=== PATIENT | male | born 1940 | race Caucasian/White ===

== ENCOUNTER 2016-06-09 13:54 | Inpatient (IN) | payer MEDICARE ==
[2016-06-09] MEDS ORDERED: NS 1,000 ML IV ONE ×2 (13:57)
--- NOTE | 2016-06-09 14:46 | DIRPT ---
CLINICAL DATA: 76-year-old male with acute weakness and fall. EXAM: PORTABLE CHEST 1 VIEW COMPARISON: 07/20/2014 chest radiograph FINDINGS: The patient is rotated. Cardiomegaly, CABG and cardiac valve replacement changes noted. There is no evidence of focal airspace disease, pulmonary edema, suspicious pulmonary nodule/mass, pleural effusion, or pneumothorax. No acute bony abnormalities are identified. IMPRESSION: Cardiomegaly without evidence of acute cardiopulmonary disease. Electronically Signed By: Ghassan Marie M.D. On: 06/09/2016 14:42
[2016-06-09 15:09] LABS: BLOOD UREA NITROGEN 60 MG/DL (9-20); CALC CORRECTED 8.7 MG/DL (8.4-10.2); CALCULATED OSMOLALITY 281 MOs/Kg (270-290); CHLORIDE 101 mEq/L (98-107); GLUCOSE 141 MG/DL (70-99); SODIUM LEVEL 136 mEq/L (137-146); TOTAL PROTEIN 5.6 G/DL (6.3-8.2)
[2016-06-09 15:12] LABS: MPV 8.5 fL (7.4-10.4)
[2016-06-09] MEDS ORDERED: FENTANYL 100 MCG/2 ML VIAL IV ONE ×2 (15:28→16:26)
--- NOTE | 2016-06-09 15:29 | EDPRACDOC ---
- General Information Chief Complaint: Generalized Weakness Stated Complaint: FALL Time Seen by Provider: 06/09/16 13:57 Information Source: Patient, Emergency Man Mode Of Arrival: Ambulance Home Medications: Home Medications Aspirin [Aspirin, Chewable] 81 mg PO DAILY 07/20/14 Atorvastatin Calcium [Lipitor] 10 mg PO HS 07/20/14 Cholecalciferol (Vitamin D3) [Vitamin D3 (cholecalciferol)] 2,000 unit PO DAILY 07/20/14 Furosemide [Lasix] 40 mg PO DAILY 07/20/14 Levothyroxine [Synthroid, Levoxyl] 50 mcg PO DAILY 07/20/14 Losartan Potassium 50 mg PO DAILY 07/20/14 Potassium Chloride 20 meq PO BID 07/20/14 Spironolactone 25 mg PO DAILY 07/20/14 Allopurinol [Zyloprim] 300 mg PO DAILY 06/09/16 Atenolol [Tenormin] 50 mg PO BID 06/09/16 Colchicine 0.6 mg PO BID PRN 06/09/16 Ferrous Sulfate [Feosol] 325 mg PO BID 06/09/16 Folic Acid 1 mg PO DAILY 06/09/16 Multivitamin [Multi-Day Vitamins] 1 each PO DAILY 06/09/16 Warfarin Sodium [Coumadin] 4 mg PO HS 06/09/16 Allergies/Adverse Reactions: Allergies Allergy/AdvReac Type Severity Reaction Status Date / Time No Known Allergies Allergy Verified 06/09/16 14:33 - History of Present Illness Onset: Friday HPI: PT TRIPPED AND FELL ON FRIDAY, LAID ON THE FLOOR FROM FRIDAY 2200 UNTIL TODAY WHEN HE WAS ABLE TO CRAWL TO THE ALARM. 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 FOLLOWED BY COUNSELING CENTER DIRECTOR AT [facility] [place] FOR LOW HB. ON IRON. DENIES CHEST PAIN. C/O LOW BACK PAIN SINCE THE FALL. ED Past Medical History - History Reviewed Yes Nurses notes reviewed and agree except as marked - Patient Medical History Cardiac History: Reports: Atrial Fibrillation (On Coumadin therapy), Hypertension, Congestive Heart Failure, Cardiac Catheterization (R AN L HEART CATH), CABG (2 weeks ago at the [facility] Valvular Heart Disease (MITRAL VALVE - [facility] VALVE PLACEMENT FOR SEVER MR TRICUSPID VALVE - SURGICA). Denies: Pacemaker Respiratory History: Reports: COPD Musculoskeletal History: Reports: Arthritis, Gout Psychological History: Reports: Anxiety. Denies: Depression, Substance Use Disorder Systemic History: Reports: Hypothyroidism Surgical History: Reports: CABG (2 weeks ago at the [facility].), Cardiac Catheterization (R AN L HEART CATH), Tonsillectomy/Adnoidectomy, Other ( Replacement of mitral valve with mechanical/metallic valve.) - Family Medical History Reports: Hypertension (MOM, SISTER, BROTHER), Cancer (DAD - MULT MYELOMA), Stroke (MOM), Cardiac Disorders (MOM). Denies: Diabetes - Social Medical History Smoking Status: Former smoker Social History: Denies: Substance Use Disorder EDM Review of Systems - Review of Systems ROS Negative Except as Marked: Yes All systems reviewed and were negative except as marked Constitutional: Weakness Respiratory: No Symptoms Reported Cardiovascular: No Symptoms Reported Gastrointestinal: No Symptoms Reported Neurological: No Symptoms Reported - Physical Exam Constitutional: No apparent distress, Alert (Awake), Other (CHRONICALLY ILL APPEARING.) Oriented to: Time, Person, Place Last recorded Vital Signs: Last Vital Signs Temp 98.2 F 06/09/16 14:00 Pulse 78 06/09/16 14:33 Resp 18 06/09/16 14:33 BP 85/47 L 06/09/16 14:33 Pulse Ox 92 06/09/16 14:33 Oxygen Pulse Oxygen Saturation 92 O2 Device Room Air Oxygen Flow Rate Fraction of Inspired Oxygen ( FIO2) - HEENT Head: Normal ( normocephalic) Eye Exam: Normal (PERRL, EOMI, Sclera white) Oropharynx: Membranes Dry Nose: No Symptoms Reported (septum midline) Neck: Normal (FROM, trachea at midline) - Respiratory/Cardiovascular Respiratory: Normal - CTA (BBS clear to auscultation without adventitious sounds ) Cardiovascular: Bradycardia - GI Auscultation: Normal (NABS) Palpation: Normal (Soft,No rebound or guarding, non distended) Tenderness: Non tender Houser's Sign: Negative Rectal Exam: Heme negative stool - Musculoskeletal Back: Other (TTP MIDLINE LUMBAR) Extremities: Normal (Normal tone, Pulses 2+ No cyanosis or edema, FROM) - Integumentary Skin: Warm, Dry, Pale, Other (ECCYMOSIS LEFT UPPER BACK, LEFT MEDIAL KNEE, VERY LARGE ECCHYMOSIS RIGHT LOWER FLANK.) Lymphatics: Normal (no adenopathy) - Neurologic Memory Impaired: Normal Motor Function: Normal (Normal tone, Pulses 2+ No cyanosis or edema, FROM) Cranial Nerve: Normal (CN II-X11 intact sensation, strength 5/5) Cerebellar: Normal Mood Description: Normal Perception: Normal - Results 06/09/16 14:45 06/09/16 14:45 Sodium 136 mEq/L (137-146) L 06/09/16 14:45 Potassium 5.2 mEq/L (3.5-5.1) H 06/09/16 14:45 Chloride 101 mEq/L (98-107) 06/09/16 14:45 Carbon Dioxide 23 mMOL/L (22-33) 06/09/16 14:45 Anion Gap 17 mEq/L (8-16) H 06/09/16 14:45 BUN 60 MG/DL (9-20) H 06/09/16 14:45 Creatinine 1.90 MG/DL (0.66-1.25) H 06/09/16 14:45 Estimated GFR (MDRD) 35 mL/min (>=60) L 06/09/16 14:45 Glucose 141 MG/DL (70-99) H 06/09/16 14:45 Calculated Osmolality 281 MOs/Kg (270-290) 06/09/16 14:45 Calcium 8.0 MG/DL (8.4-10.2) L 06/09/16 14:45 Corrected Calcium 8.7 MG/DL (8.4-10.2) 06/09/16 14:45 Magnesium 2.10 MG/DL (1.6-2.3) 06/09/16 14:45 Total Bilirubin 1.1 MG/DL (0.2-1.3) 06/09/16 14:45 AST 62 IU/L (17-59) H 06/09/16 14:45 ALT 45 IU/L (21-72) 06/09/16 14:45 Alkaline Phosphatase 69 IU/L (50-160) 06/09/16 14:45 Troponin I 0.19 ng/mL (<.04) 06/09/16 14:45 Total Protein 5.6 G/DL (6.3-8.2) L 06/09/16 14:45 Albumin 3.3 G/DL (3.5-5.0) L 06/09/16 14:45 Lab Results 06/09/16 14:45 Sodium 136 L Potassium 5.2 H Chloride 101 Carbon Dioxide 23 Anion Gap 17 H BUN 60 H Creatinine 1.90 H Estimated GFR (MDRD) 35 L Glucose 141 H Calculated Osmolality 281 Calcium 8.0 L Corrected Calcium 8.7 Magnesium 2.10 Total Bilirubin 1.1 AST 62 H ALT 45 Alkaline Phosphatase 69 Troponin I 0.19 Total Protein 5.6 L Albumin 3.3 L - EKG EKG #1 EKG Time: 14:26 -: Yes EKG interpreted by me Rate: bpm: 78 Rhythm: Afib ST: Nonsp Comments: ABNORMAL EKG - Additional Information VERY LARGE HEMATOMA RIGHT FLANK, LIKELY THE SOURCE OF BLOOD LOSS. REVIEWED WITH DR RODRÍGUEZ CARDIO [id number], NO CARDIO INTERVENTION AT THIS TIME WITH ELEVATED TROP. EASIER TO REPLACE TRICUSPID MECH VALVE IF THAT NEEDS TO OCCUR. ED Critical Care Note - Critical Care Note Total Time (mins): 30 Comments: Due to the presence of and / or the risk of deterioration, my attendance to this patient required critical care time, including assessment/reassessment, documentation, ordering and interpreting ancillary studies, discussion with ED staff and consultants,patient and family, and excludes time spent on separately billable procedures. - Departure Yes I personally saw and evaluated the patient. Disposition: Admit IP To This Hospital Condition: Critical Final Diagnosis: Acute blood loss anemia, NSTEMI (non-ST elevated myocardial infarction), Supratherapeutic INR, Compression fracture of L2 Right flank hematoma Qualifiers: Encounter type: initial encounter Qualified Code(s): S30.1XXA - Contusion of abdominal wall, initial encounter Acute renal failure Qualifiers: Acute renal failure type: unspecified Qualified Code(s): N17.9 - Acute kidney failure, unspecified Rib fractures Qualifiers: Encounter type: initial encounter Rib fracture type: multiple ribs Fracture type: closed Laterality: right Qualified Code(s): S22.41XA - Multiple fractures of ribs, right side, initial encounter for closed fracture Decision to Admit Time: 16:02 Decision to admit date: 06/09/16 Decision to admit: from ED - Physician Consulted Hospitalist Time Called: 16:02 Provider Called: Adalberto Hennessy Time [employer] Teacher Returned Call: 16:15
[2016-06-09 15:34] LABS: PARTIAL THROMB. TIME 41.3 SEC (22-35); PT-INR 4.8
[2016-06-09 15:53] LABS: SEG NEUTROPHIL 76 % (45-76); TOTAL CELL COUNT 100
[2016-06-09] MEDS ORDERED: ONDANSETRON HCL 4 MG/2 ML VIAL IV PRN (16:34)
[2016-06-09] MEDS ORDERED: DEXTROSE 25 GM/50 ML PFS IV PRN (16:34)
[2016-06-09] MEDS ORDERED: Docusate Sodium 100 MG CAP PO PRN (16:34)
[2016-06-09] MEDS ORDERED: GLUCAGON 1 MG VIAL SQ PRN (16:34)
[2016-06-09] MEDS ORDERED: ACETAMINOPHEN 650 MG SUPP PR PRN (16:34)
[2016-06-09] MEDS ORDERED: ACETAMINOPHEN 325 MG/TAB TABLET PO PRN (16:34)
[2016-06-09] MEDS ORDERED: GLUCOSE (ORAL GEL) 15 GM TUBE PO PRN (16:34)
--- NOTE | 2016-06-09 16:34 | HISTPHYS ---
- Chief Complaint weakness, anemia - History of Present Illness Mr. Streeter is a chronically ill 76-year-old white male with history of coronary artery disease, bypass surgery and tricuspid valve replacement who lives in assisted living facility and ambulates with the assistance of a walker. He apparently fell over his walker around his bath tub and shower 2 days ago eventually landing in the tub. He says the pain from the fall was so severe he was unable to move. Today he was able to reach the emergency response cord and call for help. He was found to have a large ecchymosis on his right flank and was severely tender over his right flank and pelvis. X-rays have shown right- sided rib fractures, sacral fracture and acute hematoma. He is severely anemic with a hemoglobin of 5.1. He takes Coumadin for his artificial valve and his INR is elevated at 4.8. He also appears dehydrated with acute renal failure. In the emergency room he has also been hypotensive and lethargic at times. He will be admitted to the hospital for further evaluation and management of acute blood loss anemia, hypotension, renal failure, and management of his multiple electrolyte abnormalities. - Medical History Cardiac History: Reports: Atrial Fibrillation (On Coumadin therapy), Hypertension, Congestive Heart Failure, Cardiac Catheterization (R AN L HEART CATH), CABG (2 weeks ago at the [facility] Valvular Heart Disease (MITRAL VALVE - [facility] VALVE PLACEMENT FOR SEVER MR TRICUSPID VALVE - SURGICA). Denies: Pacemaker Respiratory History: Reports: COPD GI/ History: Reports: Renal Disease Musculoskeletal History: Reports: Arthritis, Gout Systemic History: Reports: Hypothyroidism Psychological History: Reports: Anxiety. Denies: Depression, Substance Use Disorder - Surgical History Reports: CABG (2 weeks ago at the [facility].), Cardiac Catheterization (R AN L HEART CATH), Tonsillectomy/Adnoidectomy, Other (Replacement of mitral valve with mechanical/metallic valve.) - Medictions/Allergies Allergies No Known Allergies Allergy (Verified 06/09/16 14:33) Current Medication List: Reviewed Home Medications Aspirin [Aspirin, Chewable] 81 mg PO DAILY 07/20/14 Atorvastatin Calcium [Lipitor] 10 mg PO HS 07/20/14 Cholecalciferol (Vitamin D3) [Vitamin D3 (cholecalciferol)] 2,000 unit PO DAILY 07/20/14 Furosemide [Lasix] 40 mg PO DAILY 07/20/14 Levothyroxine [Synthroid, Levoxyl] 50 mcg PO DAILY 07/20/14 Losartan Potassium 50 mg PO DAILY 07/20/14 Potassium Chloride 20 meq PO BID 07/20/14 Spironolactone 25 mg PO DAILY 07/20/14 Allopurinol [Zyloprim] 300 mg PO DAILY 06/09/16 Atenolol [Tenormin] 50 mg PO BID 06/09/16 Colchicine 0.6 mg PO BID PRN 06/09/16 Ferrous Sulfate [Feosol] 325 mg PO BID 06/09/16 Folic Acid 1 mg PO DAILY 06/09/16 Multivitamin [Multi-Day Vitamins] 1 each PO DAILY 06/09/16 Warfarin Sodium [Coumadin] 4 mg PO HS 06/09/16 - Family History Reports: Hypertension (MOM, SISTER, BROTHER), Cancer (DAD - MULT MYELOMA), Stroke (MOM), Cardiac Disorders (MOM). Denies: Diabetes - Social History Travel Outside of [place] in the Last 3 Months?: No Lives: Alone Smoking Status: Former smoker Social History: Denies: Alcohol Use, Substance Use Disorder - Review of Systems Yes All systems reviewed and were negative except as marked Constitutional: Weakness. negative: Chills, Fever, Fatigue - Eyes Vision Loss (left eye). negative: Blurred Vision, Double Vision - Ears No Symptoms Reported. negative: Drainage, Hearing Loss - Nose No Symptoms Reported. negative: Abrasion, Bleeding, Injection - Mouth Mouth: No Symptoms Reported. negative: Pain, Drooling, Denture - Throat/Neck No Symptoms Reported. negative: Pain, Swelling, Hoarseness, Snoring - Respiratory Cough, Shortness of Breath. negative: Wheezing, Sputum - Cardiovascular Chest Pain. negative: Orthopnea, Palpitations - Gastrointestinal Gastrointestinal: Abdominal Pain. negative: Nausea, Vomiting - Genitourinary Genitourinary: negative: Bleeding, Dysuria, Discharge - Neurological Gait Difficulty, Weakness, Other (falls). negative: Seizure - Musculoskeletal Musculoskeletal:: Chronic low back pain, Arthritis, Stiffness, Weakness, Joint Pain, Muscle Pain - Integumentary Bruising (large ecchymosis right flank) - Allergic/Immunologic No Symptoms Reported. negative: Hives, Itching - Hematologic Easy Bruising, Easy Bleeding, Anemia - Endocrine No Symptoms Reported. negative: Weight Gain, Weight Loss - Psychiatric No Symptoms Reported. negative: Anxiety, Hallucinations - Physical Exam Constitutional: Alert (Awake), Cachectic, Distress, Restless, Other ( CHRONICALLY ILL APPEARING.). negative: Well nourished, Well appearing ( severely chronically ill appearing) Oriented to: Time, Person, Place Exam: Last Vital Signs Temp 98.2 F 06/09/16 14:00 Pulse 58 L 06/09/16 15:18 Resp 18 06/09/16 15:48 BP 116/58 L 06/09/16 15:48 Pulse Ox 95 06/09/16 15:48 Intake & Output 06/09/16 06/09/16 06/09/16 07:59 15:59 23:59 Intake Total 0 Balance 0 Patient's weight 77.111 kg - HEENT Head: Normal ( normocephalic) Eye: Normal (PERRL, EOMI, Sclera white), Other (left eye enucleated) Oropharynx: Membranes Dry Nose: No Symptoms Reported (septum midline) - Respiratory/Cardiovascular Respiratory: Rhonchi Cardiovascular: Irregular, Systolic murmur - GI Auscultation: Normal (NABS) Palpation: Normal (Soft,No rebound or guarding, non distended) Tenderness: Non tender Rectal Exam: Heme negative stool - Musculoskeletal Back: Ecchymosis, Laceration, Other (huge ecchymosis right flank and pelvis measuring >30cm, severely tender) Extremities: Femoral Pulse, Pedal Pulse (pelvis and right flank tenderness), Other - Integumentary Skin: Warm, Dry, Pale, Other (ECCYMOSIS LEFT UPPER BACK, LEFT MEDIAL KNEE, VERY LARGE ECCHYMOSIS RIGHT LOWER FLANK.) Lymphatics: Normal (no adenopathy). negative: Adenopathy - Neurologic Memory Impaired: Normal Motor Function: Unable to Test (unable to move due to severe pain, was down for 2 days) Cranial Nerve: Other (left eye deficits) Cerebellar: Normal Mood Description: Normal Thought: Coherent Perception: Normal - Focused CV Perfusion Exam Vital Signs: Last Vital Signs Temp 98.2 F 06/09/16 14:00 Pulse 58 L 06/09/16 15:18 Resp 18 06/09/16 15:48 BP 116/58 L 06/09/16 15:48 Pulse Ox 95 06/09/16 15:48 - Lab Results Laboratory Results - last 24 hr 06/09/16 06/09/16 06/09/16 14:45 14:45 14:45 WBC 15.2 H RBC 1.52 L Hgb 5.1 L* Hct 15.0 L MCV 99 H MCH 33.4 H MCHC 33.8 RDW 15.1 H Plt Count 114 L MPV 8.5 Neut % (Auto) Cancelled Lymph % (Auto) Cancelled [place] % (Auto) Cancelled Eos % (Auto) Cancelled Baso % (Auto) Cancelled Absolute Neuts (auto) Cancelled Absolute Lymphs (auto) Cancelled Seg Neuts % (Manual) 76 Band Neutrophils % 7 H Lymphocytes % (Manual) 15 L Monocytes % (Manual) 1 Metamyelocytes % 1 H Absolute Neutrophils 12.62 H Absolute Lymphocytes 2.28 Vacuolated Neuts 1+ Toxic Granulation Tr Platelet Estimate Occ giant platelet RBC Morphology 1+ macro PT 50.0 H INR 4.8 APTT 41.3 H Sodium 136 L Potassium 5.2 H Chloride 101 Carbon Dioxide 23 Anion Gap 17 H BUN 60 H Creatinine 1.90 H Estimated GFR (MDRD) 35 L Glucose 141 H Calculated Osmolality 281 Calcium 8.0 L Corrected Calcium 8.7 Magnesium 2.10 Total Bilirubin 1.1 AST 62 H ALT 45 Alkaline Phosphatase 69 Troponin I 0.19 Total Protein 5.6 L Albumin 3.3 L Crossmatch 06/09/16 16:05 WBC RBC Hgb Hct MCV MCH MCHC RDW Plt Count MPV Neut % (Auto) Lymph % (Auto) [place] % (Auto) Eos % (Auto) Baso % (Auto) Absolute Neuts (auto) Absolute Lymphs (auto) Seg Neuts % (Manual) Band Neutrophils % Lymphocytes % (Manual) Monocytes % (Manual) Metamyelocytes % Absolute Neutrophils Absolute Lymphocytes Vacuolated Neuts Toxic Granulation Platelet Estimate RBC Morphology PT INR APTT Sodium Potassium Chloride Carbon Dioxide Anion Gap BUN Creatinine Estimated GFR (MDRD) Glucose Calculated Osmolality Calcium Corrected Calcium Magnesium Total Bilirubin AST ALT Alkaline Phosphatase Troponin I Total Protein Albumin Crossmatch See Detail - Assessment (1) Acute blood loss anemia D62 - ACUTE POSTHEMORRHAGIC ANEMIA Acute Present on Admission: Yes Severe at 5.1. This appears to be due to fall, trauma and large right flank hematoma. He appears acutely ill. He is hypotensive. Urgently transfused 3 units of pack red blood cells and monitor for further bleeding. Hold Coumadin for now but hesitate to reverse entirely given artificial heart valve (2) Acute renal failure N17.9 - ACUTE KIDNEY FAILURE, UNSPECIFIED Acute Present on Admission: Yes Qualifiers: Acute renal failure type: unspecified Qualified Code(s): N17.9 - Acute kidney failure, unspecified Likely related to anemia and multiple other issues. Holding Mane receptor reji. Transfusing. Gentle IV hydration and monitor renal function closely. (3) Right flank hematoma S30.1XXA - CONTUSION OF ABDOMINAL WALL, INITIAL ENCOUNTER Acute Present on Admission: Yes Qualifiers: Encounter type: initial encounter Qualified Code(s): S30.1XXA - Contusion of abdominal wall, initial encounter Severe. Massive over entire right side and flank. Very tender. P.r.n. analgesics monitor H&H and transfuse as needed (4) Supratherapeutic INR R79.1 - ABNORMAL COAGULATION PROFILE Acute Present on Admission: Yes On Coumadin for artificial valves. Hold and will out to drift down. Reverse if anemia worsens or does not respond to transfusion (5) CAD (coronary artery disease) I25.10 - ATHSCL HEART DISEASE OF [place] CORONARY ARTERY W/O ANG PCTRS Chronic Present on Admission: Yes Qualifiers: Coronary Disease-Associated Artery/Lesion type: bypass graft [place] vs. transplanted heart: [place] heart Associated angina: without angina Qualified Code(s): I25.810 - Atherosclerosis of coronary artery bypass graft(s) without angina pectoris Denies chest pain at present. Known heart disease and high risk given severe anemia. Serial cardiac enzymes and monitor. Elevated troponin likely due to stress of severe anemia (6) Hypertension I10 - ESSENTIAL (PRIMARY) HYPERTENSION Chronic Present on Admission: Yes Qualifiers: Hypertension type: essential hypertension Qualified Code(s): I10 - Essential (primary) hypertension Currently hypotensive due to anemia. Hold medications and monitor while transfusing (7) Rib fractures S22.39XA - FRACTURE OF ONE RIB, UNSP SIDE, INIT FOR CLOS FX Acute Present on Admission: Yes Qualifiers: Encounter type: initial encounter Rib fracture type: multiple ribs Fracture type: closed Laterality: right Qualified Code(s): S22.41XA - Multiple fractures of ribs, right side, initial encounter for closed fracture Fracture of 11th and 12th ribs. (8) Sacrum and coccyx fracture S32.10XA - UNSP FRACTURE OF SACRUM, INIT ENCNTR FOR CLOSED FRACTURE; S32.2XXA - FRACTURE OF COCCYX, INITIAL ENCOUNTER FOR CLOSED FRACTURE Acute Present on Admission: Yes Qualifiers: Encounter type: initial encounter Fracture type: closed Qualified Code(s) : S32.10XA - Unspecified fracture of sacrum, initial encounter for closed fracture; S32.2XXA - Fracture of coccyx, initial encounter for closed fracture Left sacral fracture (9) Tricuspid valve replaced Z95.2 - PRESENCE OF PROSTHETIC HEART VALVE Acute Present on Admission: Yes Holding Coumadin as supratherapeutic but hesitate to reverse just yet. Would consider if bleeding worsens or does not respond to transfusion. Hopefully the hematoma has tamponaded off Case Care Discussed with: Patient, Consultants, Family, Nursing Staff, Resource Management Total Time: 1 hour 30 minutes Critical Care: Yes
--- NOTE | 2016-06-09 17:11 | DIRPT ---
CLINICAL DATA: Patient status post fall. Low back pain. Initial encounter. EXAM: LUMBAR SPINE - COMPLETE 4+ VIEW COMPARISON: None. FINDINGS: Normal anatomic alignment. Extensive multilevel degenerative disc and facet disease throughout the lower thoracic and lumbar spine. Aortic vascular calcifications. Mild anterior height loss of the L2 vertebral body, age indeterminate. Acute fractures of the posterior right eleventh and twelfth ribs are demonstrated. IMPRESSION: Acute mildly displaced fractures of the posterior right eleventh and twelfth ribs are demonstrated. Age-indeterminate anterior height loss of the L2 vertebral body, recommend correlation with point tenderness. Marked multilevel degenerative disc and facet disease. Electronically Signed By: Kedar Jean-Baptiste M.D. On: 06/09/2016 17:08
--- NOTE | 2016-06-09 17:18 | DIRPT ---
CLINICAL DATA: Severe hip pain after a fall two days ago. EXAM: BILATERAL HIP (WITH PELVIS) 3-4 VIEWS COMPARISON: None. FINDINGS: There is no hip fracture or dislocation. There is suggestion of a vertical fracture through the left side of the sacrum but this is not definitive. No appreciable pubic ramus fractures. IMPRESSION: The hips appear normal. Possible left-sided sacral fracture. Electronically Signed By: Jeff Santiago M.D. On: 06/09/2016 17:15
[2016-06-09 17:28] LABS: LEUKOCYTES/URINE NEG (NEGATIVE); NITRITE/URINE NEG (NEGATIVE); RBC/URINE 0-2 (0-2); URINE OCCULT BLOOD 1+ (NEG/TRACE)
[2016-06-09] MEDS: REGULAR INSULIN 100 UNITS/ML - 3 ML VIAL SQ SCH ×2 (18:41→21:19)
--- NOTE | 2016-06-09 18:42 | DIRPT ---
CLINICAL DATA: Fall 3 days ago in bathroom. Rib fractures and L2 fracture. Anemia. Abdominal and back pain with flank ecchymosis. Leukocytosis. EXAM: CT ABDOMEN AND PELVIS WITHOUT CONTRAST TECHNIQUE: Multidetector CT imaging of the abdomen and pelvis was performed following the standard protocol without IV contrast. COMPARISON: 06/09/2016 FINDINGS: Lower chest: Prior CABG. Mitral valve prosthesis. Moderate cardiomegaly. Bilateral gynecomastia. Small right pleural effusion. Imaging through the lung bases reveals fractures of the right tenth, eleventh, and twelfth fried ribs with the eleventh and twelfth rib fractures being displaced. Hepatobiliary: No obvious liver laceration although sensitivity is adversely affected by the lack of IV contrast. There is a small amount of fluid just below the inferior margin of the right hepatic lobe which could be an indirect sign of liver injury but may also be due to the generalized flank injury in this vicinity. Pancreas: Unremarkable Spleen: Unremarkable Adrenals/Urinary Tract: The adrenal glands, kidneys, ureters, and bladder appear normal. However, posterior to the right kidney lower pole there is a 2.6 by 3.7 by 2.2 cm hematoma with a hematocrit level and surrounding stranding. There is also abnormal stranding and probable hematoma tracking along the perirenal fascia and to a lesser degree in the right paracolic gutter. Stomach/Bowel: Small gastric diverticulum posteriorly. Scattered colonic diverticula. Normal appendix. Transverse duodenum unremarkable. Prominence of stool in the rectal vault. Vascular/Lymphatic: Aortoiliac atherosclerotic vascular disease. Reproductive: Central zone prostate gland calcifications. Other: In addition to the small abnormal perirenal space hematoma and abnormal stranding along the right perirenal fascia, there is edema tracking in the right retroperitoneum down into the pelvic sidewall and right inguinal region. No overt iloipsoas or gluteus hematoma. There is abnormal thickening of the right latissimus dorsi and the right lateral abdominal wall musculature with hematoma tracking within along the musculature but especially in the overlying subcutaneous tissues of the right flank. This is primarily infiltrative along the right flank but there is also a 17.3 by 2.9 by 10.4 cm confluent subcutaneous hematoma along the right posterior lower ribs posteriorly, and tracking just across midline on image 35 series 2. Musculoskeletal: In addition to the above-described right rib fractures, there are acute fractures of the right second, third, and fourth lumbar transverse processes as well as an oblique fracture of the anterior superior endplate of L1 extending to the upper vertebral body margin but without definite involvement of the posterior elements. Thoracic and lumbar spondylosis is present. There is bridging spurring of both sacroiliac joints. I do not see that the right lateral abdominal wall musculature is torn away from the iliac crest. No well-defined pelvic fractures; the irregularity along the left lateral arcuate line shown on radiography is thought to be due to a combination of the adjacent spurring and vascular calcifications. IMPRESSION: 1. Right flank hematoma with some expansion of the right latissimus dorsi and right lateral abdominal wall musculature indicating muscular hematoma. There is asymmetric infiltrative edema or hematoma in the right flank overlying the latissimus dorsi and lateral abdominal wall musculature, and also a more confluent 17.3 by 2.9 by 10.4 cm subcutaneous hematoma along the right posterior back overlying the thoracoabdominal junction and slightly crossing midline. 2. Acute fractures include the right tenth, eleventh, and twelfth ribs; the right L 2, L 3, and L4 transverse processes; and an oblique fracture of the anterior superior endplate of L1 extending to the upper vertebral margin but not shown to involve the posterior elements. 3. There is a small perirenal hematoma on the right. This is in the perirenal space but does not definitively connect to the kidney. There is also hematoma/edema tracking along the perirenal fascia margins on the right, along the right retroperitoneum, and towards the right inguinal canal. However, the sum total of the retroperitoneal hematoma is much smaller than the flank hematoma. 4. Small right pleural effusion. Hemothorax not excluded. 5. Other imaging findings of potential clinical significance: Moderate cardiomegaly. Prior CABG and mitral valve prosthesis. Bilateral gynecomastia. Gastric diverticulum. Prominence of stool in the rectal vault. Thoracic and lumbar bridging spurring and bridging spurring of the sacroiliac joints. No discrete pelvic fracture. 6. Please note that the lack of IV contrast reduces sensitivity for solid organ laceration. Moreover, I do not demonstrate discrete evidence for bowel injury, but bowel injury can be occult on initial trauma scan. Electronically Signed By: Santo Bates M.D. On: 06/09/2016 18:39
[2016-06-09] MEDS ORDERED: Vaccine Screening Complete SCH (20:00)
[2016-06-09] MEDS: ATORVASTATIN 10 MG TAB PO SCH (21:58)
[2016-06-09] MEDS: MORPHINE 2 MG/ML INJECTION IV PRN (23:12)
[2016-06-10] MEDS ORDERED: LEVOTHYROXINE 50 MCG (0.05 MG) TAB PO SCH (06:00)
[2016-06-10] MEDS ORDERED: LEVOTHYROXINE 25 MCG (0.025 MG) TAB PO SCH (06:00)
[2016-06-10] MEDS: REGULAR INSULIN 100 UNITS/ML - 3 ML VIAL SQ SCH ×4 (06:21→21:31)
[2016-06-10 07:42] LABS: MPV 7.7 fL (7.4-10.4)
[2016-06-10 08:02] LABS: BLOOD UREA NITROGEN 57 MG/DL (9-20); CALCIUM 7.4 MG/DL (8.4-10.2); CALCULATED OSMOLALITY 274 MOs/Kg (270-290); CHLORIDE 101 mEq/L (98-107); GLUCOSE 103 MG/DL (70-99); SODIUM LEVEL 134 mEq/L (137-146)
[2016-06-10] MEDS: MORPHINE 2 MG/ML INJECTION IV PRN ×4 (08:28→21:11)
[2016-06-10] MEDS: FUROSEMIDE 40 MG TAB PO SCH (08:30)
[2016-06-10] MEDS: ALLOPURINOL 300 MG TAB PO SCH (08:30)
[2016-06-10] MEDS ORDERED: ALLOPURINOL 300 MG TAB PO SCH (09:00)
[2016-06-10] MEDS: MAGNESIUM HYDROXIDE 30 ML BOTTLE PO PRN ×2 (15:00→21:11)
--- NOTE | 2016-06-10 16:03 | GENMEDPROG ---
Chief Complaint: Hemoglobin improved some but not as much as expected. Still significantly anemic at 6.9. Still with moderate pain though he does feel some better. Notes Reviewed: Yes Events from last night noted and discussed with Clinical Staff Current Medication List: Reviewed Currently: Denies: Cough, Wheezing, MAXWELL, SOB, Nausea and Vomiting, Abdominal Pain - Physical Examination Vital Signs and I&O: Last Vital Signs Temp 98.3 F 06/10/16 11:58 Pulse 75 06/10/16 14:00 Resp 18 06/10/16 11:58 BP 112/53 L 06/10/16 11:58 Pulse Ox 97 06/10/16 11:58 Oxygen Pulse Oxygen Saturation 97 O2 Device Room Air Oxygen Flow Rate Fraction of Inspired Oxygen ( FIO2) Intake & Output 06/07/16 06/08/16 06/09/16 06/10/16 23:59 23:59 23:59 23:59 Intake Total 2049 2326 Output Total 1850 Balance 2049 476 Patient's weight 82.157 kg 82.724 kg General: Alert, Oriented x3, Cooperative, Mild distress. negative: Well appearing (Acutely and chronically ill-appearing) HEENT: Normal, PERRLA Neck: Non-tender, Full range of motion, Normal Trachea alignment. negative: JVD Lymphatics: Normal (no adenopathy) Respiratory: Normal - CTA (BBS clear to auscultation without adventitious sounds ) Cardiovascular: Regular rate and rhythm, No Gallops,Rubs/Murmurs GI: Normal bowel sounds, Soft, Non tender, No hepatospenomegaly Extremities/Musculoskeletal: Tenderness (Right flank) Skin: Other (Large ecchymoses right flank. Very tender to palpation) Neurological: Normal speech, Cranial nerves 3-12 NL, Reflexes 2+ Psych/Mental Status: Appropriate, Normal Affect, Cooperative Lab/DI/Studies Reviewed: Laboratory Results - last 24 hr 06/09/16 06/09/16 06/09/16 14:45 16:05 17:02 WBC RBC Hgb Hct MCV MCH MCHC RDW Plt Count MPV Sodium Potassium Chloride Carbon Dioxide Anion Gap BUN Creatinine Estimated GFR (MDRD) Glucose POC Capillary Glucose Calculated Osmolality Calcium Total Creatine Kinase 1338 H Myoglobin 1994.0 H Troponin I Urine Color Yellow Urine Clarity Clear Urine pH 5.0 Ur Specific [place] 1.015 Urine Protein Neg Urine Glucose (UA) Neg Urine Ketones Neg Urine Occult Blood 1+ H Urine Nitrite Neg Urine Bilirubin Neg Urine Urobilinogen <2.0 Ur Leukocyte Esterase Neg Urine RBC 0-2 Urine WBC 2-5 H Hyaline Casts 10-20 H Urine Mucus Occ Blood Type O POSITIVE Antibody Screen Negative Crossmatch See Detail 06/09/16 06/09/16 06/10/16 19:20 22:10 05:26 WBC RBC Hgb Hct MCV MCH MCHC RDW Plt Count MPV Sodium Potassium Chloride Carbon Dioxide Anion Gap BUN Creatinine Estimated GFR (MDRD) Glucose POC Capillary Glucose 122 H Calculated Osmolality Calcium Total Creatine Kinase Myoglobin Troponin I 0.20 0.19 Urine Color Urine Clarity Urine pH Ur Specific [place] Urine Protein Urine Glucose (UA) Urine Ketones Urine Occult Blood Urine Nitrite Urine Bilirubin Urine Urobilinogen Ur Leukocyte Esterase Urine RBC Urine WBC Hyaline Casts Urine Mucus Blood Type Antibody Screen Crossmatch 06/10/16 06/10/16 06/10/16 07:34 07:34 10:49 WBC 12.2 H RBC 2.19 L Hgb 6.9 L* D Hct 20.4 L MCV 93 MCH 31.6 MCHC 34.0 RDW 16.8 H Plt Count 83 L MPV 7.7 Sodium 134 L Potassium 4.4 Chloride 101 Carbon Dioxide 26 Anion Gap 11 BUN 57 H Creatinine 1.70 H Estimated GFR (MDRD) 39 L Glucose 103 H POC Capillary Glucose 145 H Calculated Osmolality 274 Calcium 7.4 L Total Creatine Kinase Myoglobin Troponin I Urine Color Urine Clarity Urine pH Ur Specific [place] Urine Protein Urine Glucose (UA) Urine Ketones Urine Occult Blood Urine Nitrite Urine Bilirubin Urine Urobilinogen Ur Leukocyte Esterase Urine RBC Urine WBC Hyaline Casts Urine Mucus Blood Type Antibody Screen Crossmatch - Assessment (1) Acute blood loss anemia Acute D62 - ACUTE POSTHEMORRHAGIC ANEMIA Comment/Plan: Hemoglobin increased to 6.9 with 3 units. Some improvement but not as much as expected. Has huge right flank hematoma. Will transfuse 2 more units packed red blood cells. Continue to hold Coumadin for now (2) Acute renal failure Acute N17.9 - ACUTE KIDNEY FAILURE, UNSPECIFIED Qualifiers: Acute renal failure type: unspecified Qualified Code(s): N17.9 - Acute kidney failure, unspecified Comment/Plan: Creatinine a little better. Continue to monitor. (3) Right flank hematoma Acute S30.1XXA - CONTUSION OF ABDOMINAL WALL, INITIAL ENCOUNTER Qualifiers: Encounter type: initial encounter Qualified Code(s): S30.1XXA - Contusion of abdominal wall, initial encounter Comment/Plan: Severe. Massive over entire right side and flank. Very tender. P.r.n. analgesics monitor H&H and transfuse as needed (4) Supratherapeutic INR Acute R79.1 - ABNORMAL COAGULATION PROFILE Comment/Plan: On Coumadin for artificial valves. Hold and will out to drift down. Reverse if anemia worsens or does not respond to transfusion (5) CAD (coronary artery disease) Chronic I25.10 - ATHSCL HEART DISEASE OF [place] CORONARY ARTERY W/O ANG PCTRS Qualifiers: Coronary Disease-Associated Artery/Lesion type: bypass graft [place] vs. transplanted heart: [place] heart Associated angina: without angina Qualified Code(s): I25.810 - Atherosclerosis of coronary artery bypass graft(s) without angina pectoris Comment/Plan: Denies chest pain at present. Known heart disease and high risk given severe anemia. Serial cardiac enzymes and monitor. Elevated troponin likely due to stress of severe anemia (6) Hypertension Chronic I10 - ESSENTIAL (PRIMARY) HYPERTENSION Qualifiers: Hypertension type: essential hypertension Qualified Code(s): I10 - Essential (primary) hypertension Comment/Plan: Currently hypotensive due to anemia. Hold medications and monitor while transfusing (7) Rib fractures Acute S22.39XA - FRACTURE OF ONE RIB, UNSP SIDE, INIT FOR CLOS FX Qualifiers: Encounter type: initial encounter Rib fracture type: multiple ribs Fracture type: closed Laterality: right Qualified Code(s): S22.41XA - Multiple fractures of ribs, right side, initial encounter for closed fracture Comment/Plan: Fracture of 11th and 12th ribs. (8) Sacrum and coccyx fracture Acute S32.10XA - UNSP FRACTURE OF SACRUM, INIT ENCNTR FOR CLOSED FRACTURE; S32.2XXA - FRACTURE OF COCCYX, INITIAL ENCOUNTER FOR CLOSED FRACTURE Qualifiers: Encounter type: initial encounter Fracture type: closed Qualified Code(s) : S32.10XA - Unspecified fracture of sacrum, initial encounter for closed fracture; S32.2XXA - Fracture of coccyx, initial encounter for closed fracture Comment/Plan: Left sacral fracture (9) Tricuspid valve replaced Acute Z95.2 - PRESENCE OF PROSTHETIC HEART VALVE Comment/Plan: Holding Coumadin as supratherapeutic but hesitate to reverse just yet. Would consider if bleeding worsens or does not respond to transfusion. Hopefully the hematoma has tamponaded off Case Care Discussed with: Patient, Nursing Staff, Physical Therapy, Resource Management, Respiratory Therapy, Senior Caregiver
[2016-06-10] MEDS ORDERED: SIMETHICONE 80 MG TAB PO SCH (18:00)
[2016-06-10] MEDS: ATORVASTATIN 10 MG TAB PO SCH (21:15)
[2016-06-11] MEDS: MORPHINE 2 MG/ML INJECTION IV PRN ×8 (01:00→23:10)
[2016-06-11] MEDS: SIMETHICONE 80 MG TAB PO PRN ×5 (01:00→23:10)
[2016-06-11 05:27] LABS: AUTOMATED BASOPHIL 0.2 % (0-2); AUTOMATED EOSINOPHIL 0.3 % (0-5); AUTOMATED LYMPH 14.2 % (17-44); AUTOMATED MONOCYTE 9.9 % (3-10); AUTOMATED NEUTROPHIL 75.4 % (45-76); MPV 8.2 fL (7.4-10.4)
[2016-06-11 05:32] LABS: PT-INR 1.8
[2016-06-11 05:40] LABS: BLOOD UREA NITROGEN 47 MG/DL (9-20); CALCIUM 7.7 MG/DL (8.4-10.2); CALCULATED OSMOLALITY 268 MOs/Kg (270-290); CHLORIDE 98 mEq/L (98-107); GLUCOSE 90 MG/DL (70-99); SODIUM LEVEL 133 mEq/L (137-146)
[2016-06-11] MEDS: REGULAR INSULIN 100 UNITS/ML - 3 ML VIAL SQ SCH ×4 (05:47→20:47)
[2016-06-11] MEDS ORDERED: LEVOTHYROXINE 50 MCG (0.05 MG) TAB PO SCH (06:00)
[2016-06-11] MEDS: LEVOTHYROXINE 25 MCG (0.025 MG) TAB PO SCH (06:30)
[2016-06-11] MEDS: ALLOPURINOL 300 MG TAB PO SCH (09:35)
[2016-06-11] MEDS: FUROSEMIDE 40 MG TAB PO SCH (09:35)
--- NOTE | 2016-06-11 10:55 | GENMEDPROG ---
Chief Complaint: Still with moderate to severe pain. Hemoglobin has improved. Blood pressures are stable Notes Reviewed: Yes Events from last night noted and discussed with Clinical Staff Current Medication List: Reviewed Currently: Denies: Cough, Wheezing, MAXWELL, SOB, Nausea and Vomiting, Abdominal Pain - Physical Examination Vital Signs and I&O: Last Vital Signs Temp 98.3 F 06/11/16 07:45 Pulse 88 06/11/16 09:55 Resp 19 06/11/16 07:45 BP 116/59 L 06/11/16 07:45 Pulse Ox 97 06/11/16 07:45 Oxygen Pulse Oxygen Saturation 97 O2 Device Room Air Oxygen Flow Rate Fraction of Inspired Oxygen ( FIO2) Intake & Output 06/08/16 06/09/16 06/10/16 06/11/16 23:59 23:59 23:59 23:59 Intake Total 2049 3696 700 Output Total 1849 1350 Balance 2049 1846 -650 Patient's weight 82.157 kg 82.724 kg 83.28 kg General: Alert, Oriented x3, Cooperative, Mild distress. negative: Well appearing (Acutely and chronically ill-appearing) HEENT: Normal, PERRLA Neck: Non-tender, Full range of motion, Normal Trachea alignment. negative: JVD Lymphatics: Normal (no adenopathy) Respiratory: Normal - CTA (BBS clear to auscultation without adventitious sounds ) Cardiovascular: Regular rate and rhythm, No Gallops,Rubs/Murmurs GI: Normal bowel sounds, Soft, Non tender, No hepatospenomegaly Extremities/Musculoskeletal: Tenderness (Right flank) Skin: Other (Large ecchymoses right flank. Very tender to palpation) Neurological: Normal speech, Cranial nerves 3-12 NL, Reflexes 2+ Psych/Mental Status: Appropriate, Normal Affect, Cooperative Lab/DI/Studies Reviewed: Laboratory Results - last 24 hr 06/09/16 06/10/16 06/10/16 16:05 10:49 16:15 WBC RBC Hgb Hct MCV MCH MCHC RDW Plt Count MPV Neut % (Auto) Lymph % (Auto) [place] % (Auto) Eos % (Auto) Baso % (Auto) Absolute Neuts (auto) Absolute Lymphs (auto) PT INR Sodium Potassium Chloride Carbon Dioxide Anion Gap BUN Creatinine Estimated GFR (MDRD) Glucose POC Capillary Glucose 145 H 126 H Calculated Osmolality Calcium Blood Type O POSITIVE Antibody Screen Negative Crossmatch See Detail 06/10/16 06/11/16 06/11/16 20:46 04:25 04:25 WBC 9.4 RBC 2.70 L Hgb 8.3 L D Hct 24.0 L MCV 89 MCH 30.8 MCHC 34.7 RDW 19.7 H Plt Count 65 L MPV 8.2 Neut % (Auto) 75.4 Lymph % (Auto) 14.2 L [place] % (Auto) 9.9 Eos % (Auto) 0.3 Baso % (Auto) 0.2 Absolute Neuts (auto) 7.05 Absolute Lymphs (auto) 1.32 PT INR Sodium 133 L Potassium 4.4 Chloride 98 Carbon Dioxide 30 Anion Gap 9 BUN 47 H Creatinine 1.30 H Estimated GFR (MDRD) 54 L Glucose 90 POC Capillary Glucose 148 H Calculated Osmolality 268 L Calcium 7.7 L Blood Type Antibody Screen Crossmatch 06/11/16 06/11/16 06/11/16 04:25 05:45 10:47 WBC RBC Hgb Hct MCV MCH MCHC RDW Plt Count MPV Neut % (Auto) Lymph % (Auto) [place] % (Auto) Eos % (Auto) Baso % (Auto) Absolute Neuts (auto) Absolute Lymphs (auto) PT 18.6 H INR 1.8 Sodium Potassium Chloride Carbon Dioxide Anion Gap BUN Creatinine Estimated GFR (MDRD) Glucose POC Capillary Glucose 122 H 116 H Calculated Osmolality Calcium Blood Type Antibody Screen Crossmatch - Assessment (1) Acute blood loss anemia Acute D62 - ACUTE POSTHEMORRHAGIC ANEMIA Comment/Plan: Increased up to 8.3. Anemia due to huge right flank hematoma. Status post 5 units of packed red blood cells. INR now down to 1.8. Can restart Coumadin given artificial valve but will need to monitor closely for bleeding (2) Acute renal failure Acute N17.9 - ACUTE KIDNEY FAILURE, UNSPECIFIED Qualifiers: Acute renal failure type: unspecified Qualified Code(s): N17.9 - Acute kidney failure, unspecified Comment/Plan: Creatinine steadily improving. (3) Right flank hematoma Acute S30.1XXA - CONTUSION OF ABDOMINAL WALL, INITIAL ENCOUNTER Qualifiers: Encounter type: initial encounter Qualified Code(s): S30.1XXA - Contusion of abdominal wall, initial encounter Comment/Plan: Severe. Massive over entire right side and flank. Very tender. P.r.n. analgesics monitor H&H and transfuse as needed (4) Supratherapeutic INR Acute R79.1 - ABNORMAL COAGULATION PROFILE Comment/Plan: On Coumadin for artificial valves. INR 1.8 today so will restart Coumadin (5) CAD (coronary artery disease) Chronic I25.10 - ATHSCL HEART DISEASE OF [place] CORONARY ARTERY W/O ANG PCTRS Qualifiers: Coronary Disease-Associated Artery/Lesion type: bypass graft [place] vs. transplanted heart: [place] heart Associated angina: without angina Qualified Code(s): I25.810 - Atherosclerosis of coronary artery bypass graft(s) without angina pectoris Comment/Plan: Some chest pain but clearly related to rib fractures. Known heart disease and high risk given severe anemia. Cardiac status is stable (6) Hypertension Chronic I10 - ESSENTIAL (PRIMARY) HYPERTENSION Qualifiers: Hypertension type: essential hypertension Qualified Code(s): I10 - Essential (primary) hypertension Comment/Plan: Currently hypotensive due to anemia. Hold medications and monitor while transfusing (7) Rib fractures Acute S22.39XA - FRACTURE OF ONE RIB, UNSP SIDE, INIT FOR CLOS FX Qualifiers: Encounter type: initial encounter Rib fracture type: multiple ribs Fracture type: closed Laterality: right Qualified Code(s): S22.41XA - Multiple fractures of ribs, right side, initial encounter for closed fracture Comment/Plan: Fracture of 11th and 12th ribs. (8) Sacrum and coccyx fracture Acute S32.10XA - UNSP FRACTURE OF SACRUM, INIT ENCNTR FOR CLOSED FRACTURE; S32.2XXA - FRACTURE OF COCCYX, INITIAL ENCOUNTER FOR CLOSED FRACTURE Qualifiers: Encounter type: initial encounter Fracture type: closed Qualified Code(s) : S32.10XA - Unspecified fracture of sacrum, initial encounter for closed fracture; S32.2XXA - Fracture of coccyx, initial encounter for closed fracture Comment/Plan: Left sacral fracture (9) Tricuspid valve replaced Acute Z95.2 - PRESENCE OF PROSTHETIC HEART VALVE Comment/Plan: Restarting Coumadin today due to decreased INR. Case Care Discussed with: Patient, Nursing Staff, Physical Therapy, Resource Management, Respiratory Therapy, Net Sql Developer
[2016-06-11] MEDS ORDERED: WARFARIN EDUCATION DOCUMENTATION ONE (12:00)
[2016-06-11] MEDS: This patient is receiving warfarin therapy SCH (17:13)
[2016-06-11] MEDS ORDERED: WARFARIN 4 MG TAB PO SCH (18:00)
[2016-06-11] MEDS: ATORVASTATIN 10 MG TAB PO SCH (20:49)
[2016-06-12] MEDS: MORPHINE 2 MG/ML INJECTION IV PRN ×4 (02:38→11:24)
[2016-06-12 04:04] VITALS: BMI 29.0
[2016-06-12 05:34] LABS: AUTOMATED BASOPHIL 0.3 % (0-2); AUTOMATED EOSINOPHIL 1.4 % (0-5); AUTOMATED LYMPH 14.4 % (17-44); AUTOMATED MONOCYTE 12.2 % (3-10); AUTOMATED NEUTROPHIL 71.7 % (45-76); MPV 8.2 fL (7.4-10.4)
[2016-06-12 05:41] LABS: PT-INR 1.5
[2016-06-12 05:55] LABS: BLOOD UREA NITROGEN 38 MG/DL (9-20); CALCIUM 7.9 MG/DL (8.4-10.2); CALCULATED OSMOLALITY 263 MOs/Kg (270-290); CHLORIDE 96 mEq/L (98-107); GLUCOSE 88 MG/DL (70-99); SODIUM LEVEL 132 mEq/L (137-146)
[2016-06-12] MEDS: LEVOTHYROXINE 25 MCG (0.025 MG) TAB PO SCH (05:58)
[2016-06-12] MEDS: REGULAR INSULIN 100 UNITS/ML - 3 ML VIAL SQ SCH ×4 (05:58→21:17)
[2016-06-12] MEDS: SIMETHICONE 80 MG TAB PO PRN ×2 (05:59→21:21)
[2016-06-12] MEDS: FUROSEMIDE 40 MG TAB PO SCH (09:21)
[2016-06-12] MEDS: ALLOPURINOL 300 MG TAB PO SCH (09:21)
--- NOTE | 2016-06-12 10:44 | GENMEDPROG ---
Subjective Note: Patient in bed responsive follows command. Still significant amount of pain involving back and right flank. Denies and difficulties breathing lb chest discomfort with coughing and taking deep breaths related to rib fractures. Slow progress with physical therapy. Notes Reviewed: Yes Events from last night noted and discussed with Clinical Staff Current Medication List: Reviewed Currently: Reports: Cough, MAXWELL, Sputum, Tobacco Use/Hx, Reflux Sx. Denies: Wheezing, SOB, Nausea and Vomiting, Abdominal Pain DVT Prophylaxis: Yes - Physical Examination Vital Signs and I&O: Last Vital Signs Temp 98.3 F 06/12/16 07:38 Pulse 68 06/12/16 07:38 Resp 20 06/12/16 07:38 BP 121/58 L 06/12/16 07:38 Pulse Ox 94 06/12/16 07:38 Oxygen Pulse Oxygen Saturation 94 O2 Device Room Air Oxygen Flow Rate Fraction of Inspired Oxygen ( FIO2) Intake & Output 06/09/16 06/10/16 06/11/16 06/12/16 23:59 23:59 23:59 23:59 Intake Total 2049 3696 1540 Output Total 1850 3050 1500 Balance 2049 1846 -1510 -1500 Patient's weight 82.157 kg 82.724 kg 83.28 kg 84.005 kg General: Alert, Oriented x3, Cooperative, No acute distress, Weakness, Fatigue. negative: Well appearing (Acutely and chronically ill-appearing) HEENT: Normal, PERRLA, EOMI, Anicteric Sclera Neck: Non-tender, Full range of motion, Normal Trachea alignment, Limited range of motion. negative: JVD Lymphatics: Normal (no adenopathy) Respiratory: Normal - CTA (BBS clear to auscultation without adventitious sounds ), Diminished, Rhonchi Cardiovascular: Regular rate and rhythm, Normal S1, No Gallops,Rubs/Murmurs, Normal S2, Murmurs GI: Normal bowel sounds, Soft, Non tender, No hepatospenomegaly, No masses Extremities/Musculoskeletal: Tenderness (Right flank), Edema, DJD Skin: Other (Large ecchymoses right flank. Very tender to palpation) Neurological: Normal speech, Normal tone, Cranial nerves 3-12 NL, Reflexes 2+ Psych/Mental Status: Appropriate, Normal Affect, Cooperative, Anxious Lab/DI/Studies Reviewed: Allergies No Known Allergies Allergy (Verified 06/09/16 18:44) Last Vital Signs Temp 98.3 F 06/12/16 07:38 Pulse 68 06/12/16 07:38 Resp 20 06/12/16 07:38 BP 121/58 L 06/12/16 07:38 Pulse Ox 94 06/12/16 07:38 06/12/16 04:25 06/12/16 04:25 Abnormal Lab Results 06/09/16 06/09/16 06/11/16 18:40 21:18 10:47 RBC Hgb Hct RDW Plt Count Lymph % (Auto) [place] % (Auto) PT Sodium Chloride BUN POC Capillary Glucose 136 H 140 H 116 H Calculated Osmolality Calcium 06/11/16 06/11/16 06/12/16 15:37 20:41 04:25 RBC Hgb Hct RDW Plt Count Lymph % (Auto) [place] % (Auto) PT Sodium 132 L Chloride 96 L BUN 38 H POC Capillary Glucose 138 H 122 H Calculated Osmolality 263 L Calcium 7.9 L 06/12/16 06/12/16 06/12/16 04:25 04:25 05:51 RBC 2.69 L Hgb 8.3 L Hct 24.3 L RDW 19.4 H Plt Count 81 L Lymph % (Auto) 14.4 L [place] % (Auto) 12.2 H PT 15.0 H Sodium Chloride BUN POC Capillary Glucose 107 H Calculated Osmolality Calcium - Assessment (1) Acute blood loss anemia Acute D62 - ACUTE POSTHEMORRHAGIC ANEMIA Comment/Plan: Hemoglobin stable after blood transfusion. Patient received 5 units of packed red blood cells so far.. (2) Acute renal failure Resolved N17.9 - ACUTE KIDNEY FAILURE, UNSPECIFIED Qualifiers: Acute renal failure type: unspecified Qualified Code(s): N17.9 - Acute kidney failure, unspecified Comment/Plan: Renal function back to normal. Monitor BMP avoid any nephrotoxins (3) Right flank hematoma Acute S30.1XXA - CONTUSION OF ABDOMINAL WALL, INITIAL ENCOUNTER Qualifiers: Encounter type: initial encounter Qualified Code(s): S30.1XXA - Contusion of abdominal wall, initial encounter Comment/Plan: Continue narcotic analgesics on as needed basis and scheduled Tylenol.. (4) Supratherapeutic INR Acute R79.1 - ABNORMAL COAGULATION PROFILE Comment/Plan: Coumadin restarted.monitor pt/inr. (5) Rib fractures Acute S22.39XA - FRACTURE OF ONE RIB, UNSP SIDE, INIT FOR CLOS FX Qualifiers: Encounter type: initial encounter Rib fracture type: multiple ribs Fracture type: closed Laterality: right Qualified Code(s): S22.41XA - Multiple fractures of ribs, right side, initial encounter for closed fracture Comment/Plan: Fracture of 11th and 12th ribs.Contine pain control. (6) Hypertension Chronic I10 - ESSENTIAL (PRIMARY) HYPERTENSION Qualifiers: Hypertension type: essential hypertension Qualified Code(s): I10 - Essential (primary) hypertension Comment/Plan: minitor. (7) Hypothyroid Acute E03.9 - HYPOTHYROIDISM, UNSPECIFIED Qualifiers: Hypothyroidism type: acquired Qualified Code(s): E03.9 - Hypothyroidism, unspecified Comment/Plan: continue synthroid. (8) Physical deconditioning Acute R53.81 - OTHER [place] Comment/Plan: cotinue PTOT, continue falls and safety precautions. Assist with ADLs transfers. Case Care Discussed with: Patient, Nursing Staff, Resource Management, Learning Support Services Director Education/Counseling Given To: Patient Education/Counseling Given Regarding: Diagnosis, Treatment, Prognosis, Follow Up Total Time: 45 min . Critical Care: No Code: 10825 (12+)
[2016-06-12] MEDS ORDERED: PEG-ELECTROLYTE 17 GM PACK PO ONE (11:00)
[2016-06-12] MEDS: OXYCODONE HCL 5 MG TABLET PO PRN ×2 (13:20→23:08)
[2016-06-12] MEDS: ACETAMINOPHEN 325 MG/TAB TABLET PO SCH ×3 (13:21→23:08)
[2016-06-12] MEDS: This patient is receiving warfarin therapy SCH (17:14)
[2016-06-12] MEDS ORDERED: WARFARIN 5 MG TAB PO SCH (18:00)
[2016-06-12] MEDS: ATORVASTATIN 10 MG TAB PO SCH (21:18)
[2016-06-13 04:51] LABS: PT-INR 1.4
[2016-06-13 05:05] LABS: BLOOD UREA NITROGEN 40 MG/DL (9-20); CALCIUM 8.3 MG/DL (8.4-10.2); CALCULATED OSMOLALITY 265 MOs/Kg (270-290); CHLORIDE 97 mEq/L (98-107); GLUCOSE 98 MG/DL (70-99); SODIUM LEVEL 132 mEq/L (137-146)
[2016-06-13 05:11] LABS: AUTOMATED BASOPHIL 0.3 % (0-2); AUTOMATED EOSINOPHIL 3.1 % (0-5); AUTOMATED LYMPH 18.6 % (17-44); AUTOMATED MONOCYTE 15.8 % (3-10); AUTOMATED NEUTROPHIL 62.2 % (45-76); MPV 8.2 fL (7.4-10.4)
[2016-06-13] MEDS: REGULAR INSULIN 100 UNITS/ML - 3 ML VIAL SQ SCH ×2 (06:11→11:45)
[2016-06-13] MEDS: LEVOTHYROXINE 25 MCG (0.025 MG) TAB PO SCH (06:32)
[2016-06-13] MEDS: ACETAMINOPHEN 325 MG/TAB TABLET PO SCH ×2 (06:32→11:44)
[2016-06-13] MEDS: SIMETHICONE 80 MG TAB PO PRN (06:34)
[2016-06-13] MEDS: FUROSEMIDE 40 MG TAB PO SCH (07:37)
[2016-06-13] MEDS: ALLOPURINOL 300 MG TAB PO SCH (07:37)
[2016-06-13] MEDS: OXYCODONE HCL 5 MG TABLET PO PRN (07:37)
[2016-06-13 07:46] VITALS: BP 130/60; TEMP 98.6
--- NOTE | 2016-06-13 09:10 | PCM.DCS92 ---
- Final/Secondary Discharge Diagnosis (1) Acute blood loss anemia Acute D62 - ACUTE POSTHEMORRHAGIC ANEMIA Present on Admission: Yes Comment: Hemoglobin stable after blood transfusion. Patient received 5 units of packed red blood cells so far. Monitor blood count ,continue iron supplements in the form of hemocyte Plus daily. (2) Acute renal failure Resolved N17.9 - ACUTE KIDNEY FAILURE, UNSPECIFIED Present on Admission: Yes unspecified N17.9 - Acute kidney failure, unspecified Comment: Renal function back to normal. Monitor BMP avoid any nephrotoxins (3) Right flank hematoma Acute S30.1XXA - CONTUSION OF ABDOMINAL WALL, INITIAL ENCOUNTER Present on Admission: Yes initial encounter S30.1XXA - Contusion of abdominal wall, initial encounter Comment: Continue narcotic analgesics on as needed basis and scheduled Tylenol.. Continue heating pad as well (4) Supratherapeutic INR Acute R79.1 - ABNORMAL COAGULATION PROFILE Present on Admission: Yes Comment: Coumadin restarted.monitor pt/inr. (5) Rib fractures Acute S22.39XA - FRACTURE OF ONE RIB, UNSP SIDE, INIT FOR CLOS FX Present on Admission: Yes initial encounter multiple ribs closed right S22.41XA - Multiple fractures of ribs, right side, initial encounter for closed fracture Comment: Fracture of 11th and 12th ribs.Contine pain control. (6) Hypertension Chronic I10 - ESSENTIAL (PRIMARY) HYPERTENSION Present on Admission: Yes essential hypertension I10 - Essential (primary) hypertension Comment: minitor. (7) Hypothyroid Chronic E03.9 - HYPOTHYROIDISM, UNSPECIFIED acquired E03.9 - Hypothyroidism, unspecified Comment: continue synthroid. (8) Physical deconditioning Acute R53.81 - OTHER MALAISE Comment: cotinue PTOT, continue falls and safety precautions. Assist with ADLs transfers. (9) Urinary retention due to benign prostatic hyperplasia Acute N28.89 - OTHER SPECIFIED DISORDERS OF KIDNEY AND URETER; R33.8 - OTHER RETENTION OF URINE Present on Admission: Yes Plan/Goal/Comment: Patient received combination therapy in form of Flomax and Urecholine.. Will remove [place] catheter prior to discharge. Monitor for retention (10) Atrial fibrillation, controlled Chronic I48.91 - UNSPECIFIED ATRIAL FIBRILLATION Present on Admission: Yes Comment: AFib with rate that is well controlled at this time. Plan: Continue to monitor cardiac rhythm in telemetry bed. Continue current atrial fibrillation regimen. Discharge Disposition: [facility] Discharge Condition: Improved Cognitive Discharge Status: Unimpaired Fuctional Discharge Status: Walker Assistance Physician Follow up/Referrals: None,No Provider [Primary Care Provider] - One Week New Prescriptions: Tamsulosin HCl [Flomax] 0.4 mg PO HS #90 cap Vitamins,Minerals,Iron [Hemocyte Plus] 1 each PO DAILY #60 tab Omeprazole 40 mg PO DAILY #30 capsule. Oxycodone Immediate Release [Oxycodone Immediate Release (OxyIR)] 5 mg PO Q4H PRN #90 tab PRN Reason: Pain Acetaminophen [Tylenol] 650 mg PO Q6 #90 tablet Bethanechol [Urecholine] 25 mg PO ACHS #120 tab Warfarin Sodium 5 mg PO DAILY #30 tab O2 Device: Room Air Additional Instructions: CBC PT and INR on SUN Diet at Discharge: Heart Healthy, High Fiber Activity: As Tolerated, Limited, No Heavy Lifting Call Office For: Worsening Symptoms, Fever over 101 F Discontinue use of:: Alcohol, All Illegal Substances, All Types of Tobacco - DC Summary Notes Hospital Course Note:: Discharge summary on patient named AVELINO WOMACK admitted to [facility] on 06/09/16 by Adalberto Hennessy MD. Date of discharge is []. Patient was initially brought to emergency room on Jun 09 from assisted living facility after he was found leg pain in his bathtub. Apparently patient fell over his walker and landed in the bathtub and spent 2 days lying on his back. Please refer the admission for further details. ED workup was undertaken patient was found to have extensive right back and flank hematoma, his hemoglobin was 5.1, his INR was 4.8 and his creatinine was elevated up to 1.9. Patient is admitted to telemetry floor Coumadin was withheld INR was reversed. Patient required multiple blood transfusion and throughout hospitalization he has received 5 units of pooled red blood cells. Just prior to discharge his hemoglobin was oscillating between 8 and 9. Patient received gentle IV hydration and his renal function has normalized. He has required narcotic analgesics for back pain control related to acute hematoma. Outpatient regimen for his chronic medical conditions was continued and overall during hospital stay patient has remained hemodynamically stable. Once hemoglobin was stable his Coumadin was resumed. Patient was seen evaluated by PT OT and given significant deconditioning and debility problems with gait balance and transfers inpatient skilled therapy was recommended. It was felt that by June 13 patient has reached maximum benefit of inpatient therapy and in clinically improved condition he has been transferred to local [facility] for PT and OT. Total Time: 45 min . Code: 40326 (>30min.) - Physical Exam Vital Signs: Last Vital Signs Temp 98.6 F 06/13/16 07:45 Pulse 77 06/13/16 07:45 Resp 20 06/13/16 07:45 BP 130/60 06/13/16 07:45 Pulse Ox 96 06/13/16 07:45 Oxygen Pulse Oxygen Saturation 96 O2 Device Room Air Oxygen Flow Rate Fraction of Inspired Oxygen ( FIO2) Constitutional: No apparent distress, Alert (Awake), Other (CHRONICALLY ILL APPEARING.) Oriented to: Time, Person, Place - HEENT Head: Normal ( normocephalic) Eye: Normal (PERRL, EOMI, Sclera white) Oropharynx: Normal, Membranes Dry ENT EAC: Normal TMJ: Normal Nose: No Symptoms Reported (septum midline) - Respiratory/Cardiovascular Respiratory: Normal - CTA (BBS clear to auscultation without adventitious sounds ), Diminished, Rhonchi Cardiovascular: Normal, Systolic murmur - GI Auscultation: Normal (NABS) Palpation: Normal (Soft,No rebound or guarding, non distended) Tenderness: Non tender Houser's Sign: Negative Rectal Exam: Deferred, Heme negative stool Stool: Brown - Exam Deferred: Yes - Musculoskeletal Back: Normal, Other (TTP MIDLINE LUMBAR) Extremities: Normal (Normal tone, Pulses 2+ No cyanosis or edema, FROM) - Integumentary Skin: Normal, Warm, Dry Lymphatics: Normal (no adenopathy) - Neurologic Memory Impaired: Normal Motor Function: Abnormal Cranial Nerve: Normal Cerebellar: Normal Mood Description: Normal, Anxious Perception: Normal - Other Exam Other Exam Findings: Allergies No Known Allergies Allergy (Verified 06/09/16 18:44) Discharge Home Medication List Aspirin [Aspirin, Chewable] 81 mg PO DAILY 07/20/14 [History Confirmed 06/09/16] Atorvastatin Calcium [Lipitor] 10 mg PO HS 07/20/14 [History Confirmed 06/09/16] Cholecalciferol (Vitamin D3) [Vitamin D3 (cholecalciferol)] 2,000 unit PO DAILY 07/20/14 [History Confirmed 06/09/16] Furosemide [Lasix] 40 mg PO DAILY 07/20/14 [History Confirmed 06/09/16] Levothyroxine [Synthroid, Levoxyl] 50 mcg PO DAILY 07/20/14 [History Confirmed 06/09/16] Losartan Potassium 50 mg PO DAILY 07/20/14 [History Confirmed 06/09/16] Potassium Chloride 20 meq PO BID 07/20/14 [History Confirmed 06/09/16] Spironolactone 25 mg PO DAILY 07/20/14 [History Confirmed 06/09/16] Allopurinol [Zyloprim] 300 mg PO DAILY 06/09/16 [History Confirmed 06/09/16] Atenolol [Tenormin] 50 mg PO BID 06/09/16 [History Confirmed 06/09/16] Colchicine 0.6 mg PO BID PRN 06/09/16 [History Confirmed 06/09/16] Folic Acid 1 mg PO DAILY 06/09/16 [History Confirmed 06/09/16] Multivitamin [Multi-Day Vitamins] 1 each PO DAILY 06/09/16 [History Confirmed ] Acetaminophen [Tylenol] 650 mg PO Q6 #90 tablet 06/13/16 [Rx] Bethanechol [Urecholine] 25 mg PO ACHS #120 tab 06/13/16 [Rx] Omeprazole 40 mg PO DAILY #30 capsule. 06/13/16 [Rx] Oxycodone Immediate Release [Oxycodone Immediate Release (OxyIR)] 5 mg PO Q4H PRN #90 tab 06/13/16 [Rx] Tamsulosin HCl [Flomax] 0.4 mg PO HS #90 cap 06/13/16 [Rx] Vitamins,Minerals,Iron [Hemocyte Plus] 1 each PO DAILY #60 tab 06/13/16 [Rx] Warfarin Sodium 5 mg PO DAILY #30 tab 06/13/16 [Rx] New Discharge Medications (Rx) Acetaminophen [Tylenol] 650 mg PO Q6 #90 tablet 06/13/16 [Rx] Bethanechol [Urecholine] 25 mg PO ACHS #120 tab 06/13/16 [Rx] Omeprazole 40 mg PO DAILY #30 capsule. 06/13/16 [Rx] Oxycodone Immediate Release [Oxycodone Immediate Release (OxyIR)] 5 mg PO Q4H PRN #90 tab 06/13/16 [Rx] Tamsulosin HCl [Flomax] 0.4 mg PO HS #90 cap 06/13/16 [Rx] Vitamins,Minerals,Iron [Hemocyte Plus] 1 each PO DAILY #60 tab 06/13/16 [Rx] Warfarin Sodium 5 mg PO DAILY #30 tab 06/13/16 [Rx] Home Medications Aspirin [Aspirin, Chewable] 81 mg PO DAILY 07/20/14 Atorvastatin Calcium [Lipitor] 10 mg PO HS 07/20/14 Cholecalciferol (Vitamin D3) [Vitamin D3 (cholecalciferol)] 2,000 unit PO DAILY 07/20/14 Furosemide [Lasix] 40 mg PO DAILY 07/20/14 Levothyroxine [Synthroid, Levoxyl] 50 mcg PO DAILY 07/20/14 Losartan Potassium 50 mg PO DAILY 07/20/14 Potassium Chloride 20 meq PO BID 07/20/14 Spironolactone 25 mg PO DAILY 07/20/14 Allopurinol [Zyloprim] 300 mg PO DAILY 06/09/16 Atenolol [Tenormin] 50 mg PO BID 06/09/16 Colchicine 0.6 mg PO BID PRN 06/09/16 Folic Acid 1 mg PO DAILY 06/09/16 Multivitamin [Multi-Day Vitamins] 1 each PO DAILY 06/09/16 Acetaminophen [Tylenol] 650 mg PO Q6 #90 tablet 06/13/16 Bethanechol [Urecholine] 25 mg PO ACHS #120 tab 06/13/16 Omeprazole 40 mg PO DAILY #30 capsule. 06/13/16 Oxycodone Immediate Release [Oxycodone Immediate Release (OxyIR)] 5 mg PO Q4H PRN #90 tab 06/13/16 Tamsulosin HCl [Flomax] 0.4 mg PO HS #90 cap 06/13/16 Vitamins,Minerals,Iron [Hemocyte Plus] 1 each PO DAILY #60 tab 06/13/16 Warfarin Sodium 5 mg PO DAILY #30 tab 06/13/16 06/13/16 04:15 06/13/16 04:15 Abnormal Lab Results 06/12/16 06/12/16 06/12/16 11:15 16:24 20:49 RBC Hgb Hct RDW Plt Count [place] % (Auto) PT Sodium Chloride BUN POC Capillary Glucose 127 H 120 H 124 H Calculated Osmolality Calcium 06/13/16 06/13/16 06/13/16 04:15 04:15 04:15 RBC 2.61 L Hgb 8.1 L Hct 23.8 L RDW 18.9 H Plt Count 99 L [place] % (Auto) 15.8 H PT 14.4 H Sodium 132 L Chloride 97 L BUN 40 H POC Capillary Glucose Calculated Osmolality 265 L Calcium 8.3 L 06/13/16 05:24 RBC Hgb Hct RDW Plt Count [place] % (Auto) PT Sodium Chloride BUN POC Capillary Glucose 105 H Calculated Osmolality Calcium Active Problems Acute blood loss anemia (Acute) D62 Hemoglobin stable after blood transfusion. Patient received 5 units of packed red blood cells so far.. Compression fracture of L2 (Acute) S32.020A Hypothyroid (Acute) E03.9 continue synthroid. NSTEMI (non-ST elevated myocardial infarction) (Acute) I21.4 Physical deconditioning (Acute) R53.81 cotinue PTOT, continue falls and safety precautions. Assist with ADLs transfers. Rib fractures (Acute) S22.39XA Fracture of 11th and 12th ribs.Contine pain control. Rib fractures (Acute) S22.39XA Right flank hematoma (Acute) S30.1XXA Continue narcotic analgesics on as needed basis and scheduled Tylenol.. Sacrum and coccyx fracture (Acute) S32.10XA, S32.2XXA Left sacral fracture Supratherapeutic INR (Acute) R79.1 Coumadin restarted.monitor pt/inr. 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 Resolved Problems Acute renal failure (Resolved) N17.9 Renal function back to normal. Monitor BMP avoid any nephrotoxins Last Vital Signs Temp 98.6 F 06/13/16 07:45 Pulse 77 06/13/16 07:45 Resp 20 06/13/16 07:45 BP 130/60 06/13/16 07:45 Pulse Ox 96 06/13/16 07:45
[2016-06-13 14:34] VITALS: PULSE 85
== END 2016-06-13 14:50 | DRG 605 ==
LOC: ED 13:54 → PCU 16:34
PROVIDERS: ADMIT Hospitalist; ATTEND Internal Medicine
PROC: 30233N1 Transfusion of Nonautologous Red Blood Cells into Peripheral Vein, Percutaneous Approach (ICD-10-PCS; principal; 2016-06-09)
DX: S30.1XXA Contusion of abdominal wall, initial encounter (principal); N17.9 Acute kidney failure, unspecified; S32.10XA Unspecified fracture of sacrum, initial encounter for closed fracture; D62 Acute posthemorrhagic anemia; S22.41XA Multiple fractures of ribs, right side, initial encounter for closed fracture; I25.810 Atherosclerosis of coronary artery bypass graft(s) without angina pectoris; I48.91 Unspecified atrial fibrillation; E86.0 Dehydration; I10 Essential (primary) hypertension; R79.1 Abnormal coagulation profile; E03.9 Hypothyroidism, unspecified; R53.81 Other malaise; N40.1 Benign prostatic hyperplasia with lower urinary tract symptoms; R33.8 Other retention of urine; W17.89XA Other fall from one level to another, initial encounter; Y93.9 Activity, unspecified; Y92.121 Bathroom in nursing home as the place of occurrence of the external cause; Z95.1 Presence of aortocoronary bypass graft; Z95.2 Presence of prosthetic heart valve; Z79.01 Long term (current) use of anticoagulants; J44.9 Chronic obstructive pulmonary disease, unspecified; M19.90 Unspecified osteoarthritis, unspecified site; M10.9 Gout, unspecified; F41.9 Anxiety disorder, unspecified; Z79.82 Long term (current) use of aspirin; Z79.899 Other long term (current) drug therapy; Z87.891 Personal history of nicotine dependence
CPT/HCPCS: 36415; 36430; 71010; 72110; 73521; 74176; 80048; 80053; 81001; 82550; 82962; 83735; 83874; 84484; 85007; 85025; 85027; 85610; 85730; 86850; 86900; 86901; 86920; 93005; 96361; 96374; 96376; 97162; 99285; G0237; J2270; J3010; J3490; P9016